=== PATIENT | male | born 1985 | race Caucasian/White ===

== ENCOUNTER 2018-01-20 08:11 | Emergency (ER) | payer OTHER ==
[~2018-01-20] VITALS: Ht 175.3 cm; Wt 100.0 kg
[~2018-01-20 08:11] MED LIST: KEPPRA500 M2 PO
[2018-01-20 09:22] VITALS: BP 140/72
== END 2018-01-20 09:23 | disposition left against medical advice (07) | DRG 894 ==
LOC: ED 08:11
DX: F15.90 Other stimulant use, unspecified, uncomplicated (principal); Z91.19 Patient's noncompliance with other medical treatment and regimen; F17.210 Nicotine dependence, cigarettes, uncomplicated; G40.909 Epilepsy, unspecified, not intractable, without status epilepticus

== ENCOUNTER 2018-09-22 10:11 | Emergency (ER) | payer OTHER ==
[~2018-09-22] VITALS: Ht 175.3 cm; Wt 63.0 kg
[2018-09-22] MEDS ORDERED: KEFLEX500 M1 PO (11:02)
[2018-09-22 11:20] VITALS: BP 118/77
== END 2018-09-22 11:20 | disposition home or self-care (01) | DRG 605 ==
LOC: ED 10:11
PROC: 0HQ1XZZ Repair Face Skin, External Approach (ICD-10-PCS; principal; 2018-09-22)
DX: S01.81XA Laceration without foreign body of other part of head, initial encounter (principal); G40.909 Epilepsy, unspecified, not intractable, without status epilepticus; F17.200 Nicotine dependence, unspecified, uncomplicated; W22.09XA Striking against other stationary object, initial encounter; Y93.89 Activity, other specified; Y92.89 Other specified places as the place of occurrence of the external cause